=== PATIENT | male | born 1995 | race Caucasian/White ===

== ENCOUNTER 2016-12-12 11:00 | Outpatient (CLI) | payer BC ==
[~2016-12-12] VITALS: Ht 185.4 cm; Wt 73.5 kg
[~2016-12-12 11:00] MED LIST: ACYC800T; ACYC800T PO; BENZ200C25 PO; DESV100T PO; HYDR1CAP2; METO-272 PO; VENL150T PO
[2016-12-13] MEDS ORDERED: FERR-84 PO (10:31)
== END 2016-12-12 12:12 ==
LOC: PREOP 11:00
PROVIDERS: ATTEND Internal Medicine
DX: Z01.818 Encounter for other preprocedural examination (principal); R10.13 Epigastric pain; D50.9 Iron deficiency anemia, unspecified

== ENCOUNTER 2016-12-13 08:29 | Day surgery (SDC) | payer BC ==
--- NOTE | 2016-12-09 16:32 | HISTORY AND PHYSICAL ---
DATE OF SERVICE: HISTORY OF PRESENT ILLNESS: The patient is a 21-year-old white male who presented to my office on the 10/04 reporting heart racing sensations. He was noted to be in sinus tachycardia with a heart rate in the 130 range. He appeared pallorous. He had been taking Excedrin for some headaches. He denied melena or bright red blood per rectum. CBC revealed significant iron-deficiency anemia with a hemoglobin of 10.8 and an MCV of 71. He felt that his weight had been stable and he denied abdominal pain. He has no previous of known GI bleeding or peptic ulcer disease. He has had an anal fissure in the past but had not been having any pain with defecation or bright red blood per rectum. 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 He has had no past surgeries. PHYSICAL EXAMINATION: Revealed a pallorous white male in no acute distress. Blood pressure was 164/94. His chest was clear. CV revealed a regular rate and rhythm without murmur, S3 or S4. Abdomen was soft, supple without mass or organomegaly or tenderness. ASSESSMENT: For further evaluation of iron-deficiency anemia, the patient was set up for EGD evaluation, risk factors for ulceration being recent Excedrin usage. He was set up on the 12/13. He is to abstain from aspirin and nonsteroidal medication. After the visit we will likely be initiating iron and omeprazole 20 mg daily has been started. Job ID: [id number] DocumentID: [id number] Dictated Date: 12/09/2016 16:17:30 Wireless Sales Associate Date: 12/09/2016 16:31:54 Dictated By: YEVGENIY GALVEZ MD [facility]
[~2016-12-13] VITALS: Ht 185.4 cm; Wt 73.5 kg
[2016-12-13] MEDS ORDERED: D5 LR IV SOLUTION 1,000 ML IV STA (08:37)
--- NOTE | 2016-12-13 08:40 | Pre-Op Note & Conscious Sedat ---
Pre-Operative Progress Note H&P Reviewed The H&P was reviewed, patient examined and no changes noted. Date H&P Reviewed: December 13, 2016 Time H&P Reviewed: 08:40 Conscious Sedation Pre-Proced ASA Class: 1 Airway Mallampati Classification: ([place] appropriate class) I. II. III, IV Lungs Heart ASA score ASA 1: a normal healthy patient ASA 2: a patient with a mild systemic disease (mid diabetes, controlled hypertension, obesity ASA 3: a patient with a severe systemic disease that limits activity (angina , COPD, prior Myocardial infarction) ASA 4: a patient with an incapacitating disease that is a constant threat to life (CHF, renal failure) ASA 5: a moribund patient not expected to survive 24 hrs. (ruptured aneurysm) ASA 6: a declared brain patient whose organs are being harvested. For emergent operations, add the letter E after the classification Grade 1 Sedation Plan: Analgesia, Amnesia, Plan communicated to team members, Discussed options with patient/fam, Discussed risks with patient/fam Note The patient is an appropriate candidate to undergo the planned procedure, sedation, and anesthesia. The patient immediately re-assessed prior to indication. YEVGENIY GALVEZ MD December 13, 2016 08:40
[2016-12-13] MEDS ORDERED: HURRICAINE EXT TUBE (BENZOCAINE) XX PRN (08:45)
[2016-12-13] MEDS ORDERED: NALOXONE 0.4 MG/ML 1 ML (NARCAN) VIAL IVP PRN (08:45)
[2016-12-13] MEDS ORDERED: FLUMAZENIL (ROMAZICON) 0.1 MG/ML 5 ML VIAL INJ PRN (08:45)
[2016-12-13] MEDS ORDERED: LIDOCAINE JELLY 2% (XYLOCAINE) 5 ML TUBE MM PRN (08:45)
[2016-12-13 08:58] VITALS: BP 149/100
[2016-12-13] MEDS ORDERED: LIDOCAINE JELLY 2% (XYLOCAINE) 5 ML TUBE ONE (09:34)
[2016-12-13] MEDS ORDERED: fentaNYL INJECTION 100 MCG/2 ML AMP ONE ×2 (09:34→09:50)
[2016-12-13] MEDS ORDERED: MIDAZOLAM 2 MG/2 ML (VERSED) VIAL ONE ×6 (09:35→09:55)
[2016-12-13] MEDS ORDERED: HURRICAINE EXT TUBE (BENZOCAINE) ONE (09:35)
[2016-12-13] MEDS: MIDAZOLAM 2 MG/2 ML (VERSED) VIAL IVP PRN ×6 (09:45→10:01)
[2016-12-13] MEDS: fentaNYL INJECTION 100 MCG/2 ML AMP IVP PRN ×4 (09:46→09:56)
[2016-12-13 10:25] VITALS: BP 136/76
[2016-12-13] MEDS ORDERED: FERR-84 PO (10:31)
[2016-12-13 10:55] VITALS: BP 123/85
[2016-12-13 11:05] VITALS: BP 123/85
--- NOTE | 2016-12-14 05:27 | OPERATIVE REPORT ---
DATE OF SERVICE: 12/13/2016 PROCEDURE: EGD. EGD was performed for evaluation of gastroesophageal reflux symptoms with iron deficiency anemia. The patient was placed in the mid left lateral decubitus position. The endoscope was inserted in the oral cavity and a direct visualization, esophagus was intubated. Endoscope was passed down the esophagus through the stomach into the second portion of the duodenum. Careful inspection was made as the endoscope was withdrawn. The patient tolerated the procedure well. FINDINGS: Posterior hypopharynx, arytenoid aperture and true and false vocals folds were unremarkable. Proximal and mid esophagus were unremarkable. There was some mild erythema noted at the Z-line without evidence for ulceration. There was evidence to suggest significant sphincter laxity during the procedure. There was no evidence for hiatal hernia. No rings, webs or strictures were noted. The cardia and fundus of the stomach were unremarkable. There was some mild antral erythema. A biopsy was obtained and submitted for Helicobacter. Pylorus, the pyloric channel, the duodenal bulb, the second portion of the duodenum were unremarkable. Did obtain a biopsy from the small bowel to rule out celiac disease. ASSESSMENT: Lower esophageal sphincter remained patent during the entire procedure compatible sphincter laxity. There is some mild erythema noted at the Z-line, but no evidence of erosive esophagitis or Jimenes's change noted to gross inspection. Biopsies from the gastroesophageal junction, antrum and second portion of the duodenum to rule out celiac disease were obtained. The patient was sent to the office for an IFOB kit to be obtained in one week. We will initiate ferrous sulfate 325 mg before breakfast daily and he is scheduled to see me in one month if there is still evidence of occult positive blood in the stool, will need to return for colonoscopy. Job ID: [id number] DocumentID: [id number] Dictated Date: 12/13/2016 11:36:35 Furniture Mover Helper Date: 12/14/2016 04:54:42 Dictated By: YEVGENIY GALVEZ MD [facility]
== END 2016-12-13 11:05 | disposition home or self-care (01) ==
LOC: ENDO 08:29
PROVIDERS: ATTEND Internal Medicine
DX: K21.9 Gastro-esophageal reflux disease without esophagitis (principal); K29.70 Gastritis, unspecified, without bleeding; D50.9 Iron deficiency anemia, unspecified

== ENCOUNTER → 2017-01-15 | Outpatient (CLI) | payer BC ==
[~2017-01-15] MED LIST changes: +FERR-84 PO
== END ==
LOC: PREOP 05:36
PROVIDERS: ATTEND Internal Medicine
DX: Z01.818 Encounter for other preprocedural examination (principal); D50.9 Iron deficiency anemia, unspecified

== ENCOUNTER 2017-01-17 07:26 | Day surgery (SDC) | payer BC ==
--- NOTE | 2017-01-14 20:31 | HISTORY AND PHYSICAL ---
DATE OF SERVICE: COLONOSCOPY HISTORY AND PHYSICAL HISTORY OF PRESENT ILLNESS: The patient is a 21-year-old white male who presented with a history of iron deficiency anemia with occult positive blood in the stool. He initially underwent EGD evaluation, as he had been taking nonsteroidal medication for some abdominal pain. EGD did not reveal any definitive potential bleeding sites. The patient was started on iron and despite this continues to have evidence for iron deficiency anemia and reports abdominal pain with 1 to 3 loose stools per day. It is generalized and most prominent in both lower quadrants. He is being set up for colonoscopy over concerns of inflammatory bowel disease. He has been on metoprolol, as he has demonstrated sinus tachycardia with this. In the office, he still had evidence for pallor, but did not appear to be in acute distress. He is of [place] ancestry with no known family history of inflammatory bowel disease or colon cancer. FAMILY HISTORY: Mother is living with no health problems. Father has a history of hyperlipidemia. Both grandparents on his father's side of complications of vascular disease. MEDICATIONS ON ADMISSION: Included iron 325 mg daily, metoprolol-XL 50 mg daily. PHYSICAL EXAMINATION: GENERAL: Reveals a normal weight white male, slightly pallorous, but no acute distress. VITAL SIGNS: Blood pressure was 130/92 with a heart rate of 110 and regular. HEENT: Oral cavity reveals Mallampati class 1 configuration. NECK: Revealed no thyroid abnormalities to palpation, JVD, adenopathy or bruits. CHEST: Clear. CARDIOVASCULAR: Reveals a regular tachycardia without murmur, S3 or S4. ABDOMEN: Soft, supple without mass, organomegaly or tenderness. Bowel sounds are hyperactive. No distention is noted. EXTREMITIES: Reveal no cyanosis, clubbing or edema. No evidence for dermatitis is noted. No evidence for inflammatory arthritis or reported arthralgia present. ASSESSMENT: For evaluation of iron deficiency anemia, abdominal pain and diarrhea, the patient was set up for colonoscopy on 01/18/2017. Preparation instructions with Suprep kit were given and questions were answered. Job ID: [id number] DocumentID: [id number] Dictated Date: 01/14/2017 20:05:56 Silverer Date: 01/14/2017 20:31:03 Dictated By: YEVGENIY GALVEZ MD
[~2017-01-17] VITALS: Ht 185.4 cm; Wt 73.5 kg
[2017-01-17] MEDS ORDERED: 1/2 NS IV SOLUTION 1,000 ML IV STA (07:34)
--- NOTE | 2017-01-17 07:34 | Pre-Op Note & Conscious Sedat ---
Pre-Operative Progress Note H&P Reviewed The H&P was reviewed, patient examined and no changes noted. Date H&P Reviewed: Jan 17, 2017 Time H&P Reviewed: 07:34 Conscious Sedation Pre-Proced ASA Class: 2 Airway Mallampati Classification: ([place] appropriate class) I. II. III, IV Lungs Heart ASA score ASA 1: a normal healthy patient ASA 2: a patient with a mild systemic disease (mid diabetes, controlled hypertension, obesity ASA 3: a patient with a severe systemic disease that limits activity (angina , COPD, prior Myocardial infarction) ASA 4: a patient with an incapacitating disease that is a constant threat to life (CHF, renal failure) ASA 5: a moribund patient not expected to survive 24 hrs. (ruptured aneurysm) ASA 6: a declared brain patient whose organs are being harvested. For emergent operations, add the letter E after the classification Grade 1 Sedation Plan: Analgesia, Amnesia, Plan communicated to team members, Discussed options with patient/fam, Discussed risks with patient/fam Note The patient is an appropriate candidate to undergo the planned procedure, sedation, and anesthesia. The patient immediately re-assessed prior to indication. YEVGENIY GALVEZ MD Jan 17, 2017 07:34
[2017-01-17] MEDS ORDERED: 1/2 NS IV SOLUTION 1,000 ML IV ONE (07:37)
[2017-01-17] MEDS ORDERED: LIDOCAINE JELLY 2% (XYLOCAINE) 5 ML TUBE MM PRN (07:45)
[2017-01-17] MEDS ORDERED: NALOXONE 0.4 MG/ML 1 ML (NARCAN) VIAL IVP PRN (07:45)
[2017-01-17] MEDS ORDERED: FLUMAZENIL (ROMAZICON) 0.1 MG/ML 5 ML VIAL INJ PRN (07:45)
[2017-01-17 07:46] VITALS: BP 131/95
[2017-01-17] MEDS ORDERED: fentaNYL INJECTION 100 MCG/2 ML AMP ONE ×2 (08:14)
[2017-01-17] MEDS ORDERED: MIDAZOLAM 2 MG/2 ML (VERSED) VIAL ONE ×3 (08:15)
[2017-01-17] MEDS ORDERED: LIDOCAINE JELLY 2% (XYLOCAINE) 5 ML TUBE ONE (08:15)
[2017-01-17] MEDS: fentaNYL INJECTION 100 MCG/2 ML AMP IVP PRN ×2 (08:20→08:35)
[2017-01-17] MEDS: MIDAZOLAM 2 MG/2 ML (VERSED) VIAL IVP PRN ×2 (08:25→08:40)
[2017-01-17 09:25] VITALS: BP 120/79
[2017-01-17 10:00] VITALS: BP 130/80
[2017-01-17 11:17] VITALS: BP 130/80
--- NOTE | 2017-01-17 13:33 | OPERATIVE REPORT ---
DATE OF SERVICE: COLONOSCOPY SUMMARY INDICATION FOR PROCEDURE: Iron deficiency anemia, occult positive blood in the stool with diarrhea. The patient was placed in the left lateral decubitus position. Prior to undergoing colonoscopy, digital rectal evaluation was performed. Anal sphincter tone was normal. Prostate was normal in size to somewhat small, anodular and nontender to digital inspection. No other abnormalities were noted on digital inspection of anal canal or distal rectal vault. The colonoscope was then inserted into the rectum under direct visualization and advanced to the cecum. The cecum was identified by identification of the ileocecal valve and cecal strap. The terminal ileum was intubated and the distal 10 cm of terminal ileum were inspected as well. Careful inspection was made as the colonoscope was withdrawn. The quality prep was good. The patient tolerated the procedure well. FINDINGS: There was no evidence for internal or external hemorrhoids and no fistula formation was noted. The rectum was unremarkable. Several shallow punctate areas of erosion with a small so-called pseudo polyp type formation were present in the sigmoid colon. The descending colon was unremarkable. There are patchy areas of ulceration with white exudate noted in the transverse colon, worse proximally and patchy areas of involvement of the ascending colon with interval normal-appearing mucosa were present. Photographs were obtained. Biopsies from the transverse and ascending colon were performed and with induration suggesting a transmural process. There was an ulcer spilling onto the upper lip of the ileocecal valve with significant patchy areas of ulceration noted in the distal 10 cm of terminal ileum that was inspected. No stricturing or significant luminal narrowing was appreciated. Multiple biopsies were obtained and submitted for histopathology. No obvious areas to suggest malignancy to visual inspection were noted. ASSESSMENT: Today's findings are consistent with Crohn disease as is his history. We will be initiating prednisone 30 mg b.i.d. and await histopathology results. Side effects were discussed and the utilization of prednisone as bridging therapy with other likely oral medication to follow. The patient was scheduled to see me back in 2 weeks. We will monitor his progress. At baseline, prior to treatment, the patient does have iron deficiency anemia. We will be increasing his iron to 325 mg b.i.d. His baseline sed rate was 54 with reported 1-2 loose stools per day without abdominal pain or any night sweats, chills or fever. He has not experienced significant weight loss either. Job ID: [id number] DocumentID: [id number] Dictated Date: 01/17/2017 11:58:28 Rn Eligibility Date: 01/17/2017 13:32:54 Dictated By: YEVGENIY AGLVEZ MD [facility]
--- OUTSIDE RECORDS SUMMARY | 2017-01-22 12:07 | XMS REPORT | Continuity of Care Document ---
Author Author [facility] Organization [facility] Address Unknown Phone Unavailable Care Team Providers Care Technical Artist Name Role Phone Self, Referral PCP Unavailable Source Comments Some departments are not documenting in the electronic medical record. If you do not see the information that you expected, contact Release of Information in the Health Information Management department at [phone] for further assistance in locating additional records.[facility] Active Allergies and Adverse Reactions No Known Allergies Current Medications Prescription Sig. Disp. Refills Start End Date Status Date Desvenlafaxine (PRISTIQ) Take 50 mg by mouth Active 100 mg Tb24 daily. Active Problems Problem Noted Date Saldivar-Burke syndrome (HCC) 11/06/2012 Overview: Twice 10/2009 & 08/2012 Social History Tobacco Use Types Packs/Day Years Used Date Never Smoker Alcohol Use Drinks/Week oz/Week Comments No Last Filed Vital Signs Vital Sign Reading Time Taken Blood Pressure 126/86 11/04/2012 1:41 PM CDT Pulse 104 11/04/2012 1:41 PM CDT Temperature 37 C (98.6 F) 11/04/2012 1:41 PM CDT Respiratory Rate 16 11/04/2012 1:41 PM CDT Height 1.829 m (6') 11/04/2012 1:41 PM CDT Weight 72.576 kg (160 lb) 11/04/2012 1:41 PM CDT Body Mass Index 21.7 11/04/2012 1:41 PM CDT Oxygen Saturation - - Plan of Care Health Maintenance Due Date Last Done Comments Physical (Comprehensive) 2001 Exam Pertussis Vaccine 2005 Tetanus Vaccine 2011 Influenza Vaccine 04/04/2017 Results from Last 3 Months Not on file
--- OUTSIDE RECORDS SUMMARY | 2017-01-22 12:07 | XMS REPORT | Continuity of Care Document ---
Demographics Preferred Language Unknown Marital Status Unknown Presybeterian Affiliation Unknown Race Unknown Ethnic Group Unknown Author Author [facility] Address Unknown Phone Unavailable Allergies Medications Problems Date Dx Coded Attending Type Code Diagnosis Diagnosed By 09/13/2009 300.00 AN ANXIETY UNSPEC Procedures Results Encounters ACCT No. Visit Date/Time Discharge Status Pt. Type Provider Facility Loc./Unit Complaint [id number] 05/24/2010 00:00:00 05/24/2010 23: 59:59 CLS Outpatient [id number] 08/30/2012 16:46:49 RECURRING
== END 2017-01-17 10:15 | disposition home or self-care (01) ==
LOC: ENDO 07:26
PROVIDERS: ATTEND Internal Medicine
DX: K52.9 Noninfective gastroenteritis and colitis, unspecified (principal); D50.9 Iron deficiency anemia, unspecified